=== PATIENT | female | born 1975 | race African-American/Black ===

== ENCOUNTER 2022-12-17 20:13 | Emergency (ER) | payer OTHER ==
[~2022-12-17] VITALS: Ht 165.1 cm; Wt 145.0 kg
[2022-12-17 23:40] LABS: Urine Bacteria NONE SEEN /hpf (None Seen); Urine Blood Negative /uL (Negative); Urine Mucus FEW (None Seen); Urine Specific Gravity 1.028 (1.001-1.035); Urine WBC 1 /hpf (0 - 5)
[2022-12-18] MEDS ORDERED: KETOROLAC TROMETH 60MG/2ML VIAL IM ONE
[2022-12-18] MEDS ORDERED: NAP500T PO (00:02)
[2022-12-18 01:22] VITALS: BP 119/74
== END 2022-12-18 02:01 | disposition home or self-care (01) ==
LOC: ER 20:23
DX: G89.29 Other chronic pain (principal); M54.59 Other low back pain
CPT/HCPCS: 81001; 96372; 99283; J1885